=== PATIENT | female | born 1935 ===

== ENCOUNTER 2017-06-15 17:51 | Inpatient (IN) | payer MEDICARE, OTHER ==
[~2017-06-15] VITALS: Ht 152.4 cm; Wt 43.1 kg
[2017-06-15] MEDS ORDERED: IV NORMAL SALINE 1000 ML BAG IV ONE ×2 (18:15→19:15)
[2017-06-15] MEDS ORDERED: ABILIFY (18:18)
[2017-06-15 18:56] LABS: BASOPHILS % (AUTO) 0.3 % (0.0-2.0); HEMATOCRIT 34.9 % (31.2-41.9); HEMOGLOBIN 11.3 g/dL (10.9-14.3); LYMPHOCYTES # (AUTO) 2.2 K/uL (20.0-40.0); LYMPHOCYTES % (AUTO) 37.2 % (20.5-51.5); MEAN CORPUSCULAR HEMOGLOBIN 29.5 uug (24.7-32.8); MEAN CORPUSCULAR HGB CONC 32 g/dL (32.3-35.6); MEAN CORPUSCULAR VOLUME 91.3 fL (75.5-95.3); MONOCYTES % (AUTO) 17.5 % (0.0-11.0); NEUTROPHILS # (AUTO) 2.7 K/uL (1.8-8.9); PLATELET COUNT (AUTO) 153 K/uL (179-408); RED BLOOD CELL COUNT(AUTO) 3.82 MIL/uL (3.63-4.92)
[2017-06-15 18:59] LABS: CARBON DIOXIDE 31 mmol/L (21-32); CHLORIDE 110 mmol/L (98-107); CREATININE 1.2 mg/dL (0.6-1.3); GLUCOSE 139 mg/dL (74-106); UREA NITROGEN, BLOOD 49 mg/dL (7-18)
[2017-06-15 19:05] LABS: ALANINE AMINOTRANSFERASE 104 U/L (14-59); ALKALINE PHOSPHATASE 58 U/L (50-136); ASPARTATE AMINOTRANSFERASE 140 U/L (15-37); BILIRUBIN,DIRECT 0.1 mg/dL (0.0-0.2); BILIRUBIN,TOTAL 0.3 mg/dL (0.2-1.0); TOTAL PROTEIN, SERUM 10.5 g/dL (6.4-8.2)
[2017-06-15] MEDS ORDERED: LEVOFLOXACIN 500 MG/D5W 100ML PIGGYBACK IV ONE (19:15)
[2017-06-15] MEDS ORDERED: METRONIDAZOLE 500 MG/NS 100ML 100 ML IV ONE (19:15)
[2017-06-15] MEDS ORDERED: VANCOMYCIN IV 1,000 MG in IV DEXTROSE 5% 250 ML IV ONE (19:15)
[2017-06-15 19:32] LABS: BAND % (MANUAL) 16 % (0-10); LYMPHOCYTES % (MANUAL) 35 % (20-40); MONOCYTES % (MANUAL) 15 % (2-10); NEUTROPHILS % (MANUAL) 34 % (42-75)
--- NOTE | 2017-06-15 19:45 | NUR ---
Received report from IAN Giron. Assumed care of pt at this time. ABT infusing, no problems noted to site. Pt resting in position of comfort for self. No obviou signs of distress at this time. Family remains at bedside.
[2017-06-15 19:59] LABS: *BILIRUBIN,URIN NEGATIVE (NEGATIVE); *BLOOD, URINE 2+ (NEGATIVE); *CLARITY,URINE CLOUDY (CLEAR); *COLOR,URINE YELLOW (YELLOW); *KETONES,URINE NEGATIVE (NEGATIVE); *UROBILINOGEN,URINE 0.2 E.U./dl (NORMAL); LEUKOCYTE ESTERASE ,URINE 3+ (NEGATIVE); NITRITE, URINE NEGATIVE (NEGATIVE); PH,URINE 7.5 (5.0-8.0); UGLUCOSE NEGATIVE (NEGATIVE)
[2017-06-15 20:13] LABS: *PROTEIN,URINE 3+ (NEGATIVE)
[2017-06-15 20:16] LABS: BACTERIA,URINE MODERATE /HPF (NONE SEEN); CALCIUM OXALATE CRYSTALS,UR FEW /HPF (NONE SEEN); SQUAMOUS EPITHELIAL CELL,UR FEW /HPF (NONE SEEN); WBC,URINE 80-100 /HPF (0-3); YEAST,URINE MANY /HPF (NONE SEEN)
--- NOTE | 2017-06-15 20:41 | NUR ---
ABT infusion completed. IV infiltrated, dc'd catheter intact. Pt resting in position of comfort for self, family remains at bedside. No obvious signs of distress at this time.
--- NOTE | 2017-06-15 22:51 | NUR ---
Report given to IAN Petit. Preparing to transfer pt to the floor.
[2017-06-15] MEDS ORDERED: HYDR2TAB7 PO (23:11)
[2017-06-15] MEDS ORDERED: AMLO5TAB2 PO (23:11)
[2017-06-15] MEDS ORDERED: MAGN500C16 PO (23:11)
[2017-06-15] MEDS ORDERED: LORA-258 PO (23:11)
[2017-06-15] MEDS ORDERED: DULO30CA2 PO (23:11)
[2017-06-15] MEDS ORDERED: CYAN50004 PO (23:11)
[2017-06-15] MEDS ORDERED: ESOM40CA PO (23:11)
[2017-06-15] MEDS ORDERED: QUET25TA PO (23:11)
[2017-06-15] MEDS ORDERED: ASPI81TA31 PO (23:11)
[2017-06-15] MEDS ORDERED: SENN-167 PO (23:11)
[2017-06-15] MEDS ORDERED: DEXT1CAP3 PO (23:11)
[2017-06-15] MEDS ORDERED: ROPI0.5T PO (23:11)
[2017-06-15] MEDS ORDERED: HYDR2TAB4 PO (23:11)
[2017-06-15] MEDS ORDERED: HYDROMORPHONE 1 MG/1 ML DISP.SYRIN IV ONE (23:15)
[2017-06-15] MEDS ORDERED: ONDANSETRON 4 MG/2 ML VIAL IV ONE (23:15)
[2017-06-15] MEDS ORDERED: HYDROMORPHONE 2 MG/1 ML DISP.SYRIN ONE (23:37)
[2017-06-15] MEDS ORDERED: ONDANSETRON 4 MG/2 ML VIAL ONE (23:38)
--- NOTE | 2017-06-16 00:15 | NUR ---
RECEIVED PATIENT FROM ER VIA GURNEY. PATIENT STABLE WITH NO SIGNS OF PAIN, SOB, OR ACUTE DISTRESS. PATIENT CONFUSED/FARSI SPEAKER. FAMILY WITH PATIENT AT BEDSIDE. ADMIT DX OF SEPSIS, UNDER THE CARE OF DR. NOVOA. VITAL SIGNS STABLE AT START OF SHIFT. TELE MONITOR LEADS IN PLACE. PERTINENT ASSESSMENT COMPLETED. MD AWARE OF PATIENT ADMISSION. BED IN LOW POSITION X2 SIDE RAILS UP. CALL LIGHT WITHIN REACH OF PATIENT. WILL CONTINUE TO MONITOR PATIENT THROUGH SHIFT.
[2017-06-16 01:26] VITALS: BP 122/65
[2017-06-16] MEDS ORDERED: MAGNESIUM HYDROXIDE 30 ML LIQUID UDC PO PRN (02:00)
[2017-06-16] MEDS ORDERED: Z GUARD REMEDY PASTE 57 GM TUBE TOP PRN ×2 (02:00→09:15)
[2017-06-16] MEDS ORDERED: ZOLPIDEM 5 MG TABLET PO PRN (02:00)
[2017-06-16] MEDS ORDERED: HYDROMORPHONE HCL 2 MG TABLET PO PRN (02:00)
[2017-06-16] MEDS ORDERED: SENNOSIDES 1 TABLET PO PRN (02:00)
[2017-06-16] MEDS ORDERED: ONDANSETRON 4 MG/2 ML VIAL IV PRN (02:00)
[2017-06-16 04:00] VITALS: BP 133/73
--- NOTE | 2017-06-16 05:41 | NUR ---
PATIENT SLEPT WELL SINCE ADMISSION WITH NO SIGNS OF PAIN, SOB, OR ACUTE DISTRESS. VITAL SIGNS STABLE THROUGH SHIFT. PT ON 2L O2 VIA NC. ALL NEEDS ATTENDED TO. NUNN CATH BAG LOW AT BEDSIDE AND OFF THE FLOOR. APPLIED MEPILEX TO PRESSURE ULCERS. SAFETY MEASURES IMPLEMENTED.BED IN LOW POSITION X2 SIDE RAILS UP. CALL LIGHT WITHIN REACH OF PT. WILL ENDORSE TO DAY SHIFT NURSE.
[2017-06-16] MEDS: HYDROCODONE/APAP 5-325MG TABLET PO PRN (08:04)
[2017-06-16] MEDS: ropiniROLE 0.5 MG TABLET PO SCH ×2 (08:15→17:56)
[2017-06-16] MEDS: ACETAMINOPHEN 325 MG TABLET PO PRN ×2 (08:15→15:00)
[2017-06-16] MEDS: AMLODIPINE 5 MG TABLET PO SCH (08:15)
[2017-06-16] MEDS: DULOXETINE 30 MG CAPSULE.DR PO SCH (08:15)
[2017-06-16 08:34] LABS: BASOPHILS % (AUTO) 0.4 % (0.0-2.0); HEMATOCRIT 34.3 % (31.2-41.9); HEMOGLOBIN 11.1 g/dL (10.9-14.3); LYMPHOCYTES # (AUTO) 2.6 K/uL (20.0-40.0); LYMPHOCYTES % (AUTO) 47.6 % (20.5-51.5); MEAN CORPUSCULAR HEMOGLOBIN 29.3 uug (24.7-32.8); MEAN CORPUSCULAR HGB CONC 32 g/dL (32.3-35.6); MEAN CORPUSCULAR VOLUME 90.8 fL (75.5-95.3); MONOCYTES # (AUTO) 0.8 K/uL (2.0-10.0); MONOCYTES % (AUTO) 14.1 % (0.0-11.0); NEUTROPHILS % (AUTO) 37.9 % (38.5-71.5); PLATELET COUNT (AUTO) 140 K/uL (179-408); RED BLOOD CELL COUNT(AUTO) 3.78 MIL/uL (3.63-4.92); WHITE BLOOD COUNT (AUTO) 5.4 K/uL (3.8-11.8)
[2017-06-16 08:41] LABS: CARBON DIOXIDE 29 mmol/L (21-32); CHLORIDE 112 mmol/L (98-107); CREATININE 0.9 mg/dL (0.6-1.3); GLUCOSE 118 mg/dL (74-106); MAGNESIUM 2.3 mg/dL (1.8-2.4); PHOSPHOROUS 2.8 mg/dL (2.5-4.9); POTASSIUM 3.9 mmol/L (3.5-5.1); UREA NITROGEN, BLOOD 46 mg/dL (7-18)
[2017-06-16] MEDS: ASPIRIN 81 MG TAB.CHEW PO SCH (09:12)
[2017-06-16] MEDS: IV NS 1000 ML 1,000 ML IV PRN ×2 (09:19→20:24)
[2017-06-16] MEDS: HYDROMORPHONE HCL 2 MG TABLET PO PRN ×3 (10:56→20:38)
[2017-06-16 11:15] VITALS: BP 137/75
--- NOTE | 2017-06-16 13:08 | NUR ---
Clinical pharmacy note-Vancomycin dosing per pharmacy S: To start Vancomycin dosing on this patient for suspected infection. O: BUN 46 Scr 0.9 WBC 5.4 Temp 101.6 A/P: Patient had Vancomycin 1gram in ER last night at 2216. Since renal function is improved (0.9 vs 1.2), will check random tonight at 1800 for further dosing. Will follow daily. Addendum: 06/16/17 at 1839 by IVONNE DURANT RANDOM LEVEL 6.8 GIVE VANCOMYCIN 1GM IVPB X 1 REPEAT RANDOM LEVEL TOMORROW EVENING
--- NOTE | 2017-06-16 14:29 | NUR ---
WOUND CARE CONSULT: PT NOT SEEN FOR SKIN ASSESSMENT YET DUE TO PATIENT HAVING PROCEDURE AT THIS TIME. PT ON FIRST STEP MATTRESS. ALL SKIN PROTECTION MEASURES IN PLACE AND DISCUSSED WITH NURSING STAFF. WILL SEE PT PT CONDITION PERMITS. MD IN AGREEMENT WITH PLAN OF CARE.
[2017-06-16] MEDS: QUETIAPINE FUMARATE 25 MG TABLET PO SCH ×4 (15:00→20:39)
[2017-06-16] MEDS: PIPERACILLIN/TAZOBACTAM/D5W 3.375 G in PREMIXED 1 EACH IV SCH ×2 (15:09→23:05)
[2017-06-16] MEDS ORDERED: LEVOFLOXACIN 500 MG/D5W 500 MG in PREMIXED 1 EACH IV SCH (16:00)
--- NOTE | 2017-06-16 17:14 | NUR ---
PATIENT BEEN DISCHARGE HOME IN SAFE AND STABLE CONDITION TO [facility]. NO S/S OF DISTRESS DURING MY SHIFT. COOPERATIVE WITH ALL INTERVENTIONS AND MEDICATIONS. DISCHARGE INSTRUCTIONS WERE EXPLAINED TO THE PATIENT AND FAMILY. A COPY WAS PROVIDED TO THE FAMILY. REPORT WAS GIVEN TO IAN LIRIANO AT THE FACILITY. IV WAS REMOVED AND DRESSING WAS APPLIED. ALL DC PHOTOS WERE TAKEN AND PLACED ON THE CHART. SAFETY AND COMFORT WAS PROVIDED BY STAFF. PATIENT WAS TAKEN BY AMBULANCE IN STABLE CONDITION ACCOMPANIED BY FAMILY. Addendum: 06/16/17 at 1751 by SB GUAMAN RN Wrong patient
--- NOTE | 2017-06-16 17:51 | NUR ---
PATIENT BEEN RUNNING A FEVER DURING THE DAY. AND MOANING AND CRYING FOR PAIN. MEDICATION WAS GIVEN FOR TEMPERATURE AND PAIN. COOLING MEASUREMENT WAS APPLIED. DR. NOVOA NOTIFIED ABOUT THE INCREASE FEVER. ANTIBIOTICS WERE ADMINISTERED ORDERED. FAMILY MEMBER VISITED AND HELPED PATIENT FEED THE PATIENT. WOUND CONSULT WAS ORDERED, HYDROGEL AND MEPILEX WERE APPLIED ON THE PRESSURE ULCERS. REPOSITION Q2HRS. IV STILL INTACT, FLUIDS ARE RUNNING AT THE MOMENT. SAFETY AND COMFORT PROVIDED DURING THE DAY BY THE STAFF. WILL CONTINUE MONITORING.
[2017-06-16 19:00] VITALS: BP 111/61
--- NOTE | 2017-06-16 19:28 | NUR ---
PATIENT IS IN BED RESTING. FAMILY AT THE BEDSIDE. REPORT GIVEN IAN SCHWARZ
--- NOTE | 2017-06-16 19:30 | NUR ---
PT SLEEPING IN BEDSIDE. FAMILY MEMBER ON BEDSIDE. PT IV SITE INTACT. CALL LIGHT WITHIN REACH. BED ALARM ON. PROVIDE COMFORT AND SAFTEY. WILL CONTINUE TO MONITOR.
[2017-06-16] MEDS ORDERED: VANCOMYCIN IV 1 G in PREMIXED 0 EACH IV ONE (20:00)
[2017-06-16 21:00] VITALS: BP 111/61
[2017-06-16] MEDS ORDERED: FLUCONAZOLE 200 MG/NS 100ML IV 100 MG in PREMIXED 1 EACH IV SCH (21:15)
[2017-06-17] MEDS ORDERED: FLUCONAZOLE 200 MG/100 ML PIGGYBACK ONE (00:36)
[2017-06-17] MEDS: HYDROMORPHONE HCL 2 MG TABLET PO PRN ×4 (01:35→20:11)
[2017-06-17 04:00] VITALS: BP 161/87
[2017-06-17] MEDS: HYDROCODONE/APAP 5-325MG TABLET PO PRN (05:13)
[2017-06-17] MEDS: PIPERACILLIN/TAZOBACTAM/D5W 3.375 G in PREMIXED 1 EACH IV SCH ×3 (06:08→23:50)
--- NOTE | 2017-06-17 06:45 | NUR ---
PT SLEEPING IN BED. GAVE PAIN MEDICATION THROUGHOUT THE SHIFT. PT IS MOANING AND CRYING BUT WHENEVER I GAVE THE PAIN MEDS SHE SLEPT AFTERWARDS. REPOSITON THE PT Q 2 H . SAFETY AND COMFORT PROVIDED.
[2017-06-17 08:04] LABS: BASOPHILS % (AUTO) 0.2 % (0.0-2.0); EOSINOPHILS % (AUTO) 0.1 % (0.0-7.0); HEMATOCRIT 34.4 % (31.2-41.9); HEMOGLOBIN 10.8 g/dL (10.9-14.3); LYMPHOCYTES # (AUTO) 2.2 K/uL (20.0-40.0); LYMPHOCYTES % (AUTO) 38.8 % (20.5-51.5); MEAN CORPUSCULAR HEMOGLOBIN 28.7 uug (24.7-32.8); MEAN CORPUSCULAR HGB CONC 31 g/dL (32.3-35.6); MEAN CORPUSCULAR VOLUME 91.5 fL (75.5-95.3); MONOCYTES # (AUTO) 0.4 K/uL (2.0-10.0); MONOCYTES % (AUTO) 6.5 % (0.0-11.0); NEUTROPHILS # (AUTO) 3.1 K/uL (1.8-8.9); NEUTROPHILS % (AUTO) 54.4 % (38.5-71.5); PLATELET COUNT (AUTO) 127 K/uL (179-408); RED BLOOD CELL COUNT(AUTO) 3.76 MIL/uL (3.63-4.92); WHITE BLOOD COUNT (AUTO) 5.7 K/uL (3.8-11.8)
[2017-06-17 08:32] LABS: CARBON DIOXIDE 27 mmol/L (21-32); CHLORIDE 112 mmol/L (98-107); CHOLESTEROL 142 mg/dL (<200); CREATININE 0.7 mg/dL (0.6-1.3); GLUCOSE 111 mg/dL (74-106); HDL CHOLESTEROL 39 mg/dL (40-60); MAGNESIUM 2.1 mg/dL (1.8-2.4); PHOSPHOROUS 2.1 mg/dL (2.5-4.9); POTASSIUM 3.7 mmol/L (3.5-5.1); TRIGLYCERIDES 133 MG/DL (30-150); UREA NITROGEN, BLOOD 28 mg/dL (7-18)
[2017-06-17 08:36] VITALS: BP 146/95
[2017-06-17] MEDS: AMLODIPINE 5 MG TABLET PO SCH (08:46)
[2017-06-17] MEDS: ASPIRIN 81 MG TAB.CHEW PO SCH (08:46)
[2017-06-17] MEDS: ropiniROLE 0.5 MG TABLET PO SCH ×2 (08:47→18:07)
[2017-06-17] MEDS: DULOXETINE 30 MG CAPSULE.DR PO SCH (08:47)
[2017-06-17] MEDS: QUETIAPINE FUMARATE 25 MG TABLET PO SCH ×4 (08:47→20:55)
--- NOTE | 2017-06-17 09:29 | NUR ---
Nurse's Note: Patient is moaning, patient moans when having pain, medicated with Dilaudid 2 mg tablet crushed and given with juice. daughter at bedside. patient will not open mouth. liquids and medication given with syringe. Patient is able to swallow.
--- NOTE | 2017-06-17 11:22 | NUR ---
Clinical pharmacy note-Vancomycin dosing per pharmacy S: Will continue Vancomycin dosing on this patient for suspected infection. O: BUN 28 Scr 0.7 WBC 5.7 Temp 99.8 pending: tonight 1750 A/P: Pt's renal function continues to improve. one gram was given last night, random ordered for this evening at 1730. Will check level and dose as needed. Addendum: 06/17/17 at 1911 by USHA FERNANDES ADM VANCOMYCIN LEVEL IS 7.9 WILL ADMINISTER ANOTHER DOSE OF VANCOMYCIN 1 GM
[2017-06-17 11:43] VITALS: BP 145/93
[2017-06-17] MEDS: IV NS 1000 ML 1,000 ML IV PRN (13:52)
[2017-06-17] MEDS ORDERED: POTASSIUM PHOSPHATE MM 7.5 MMOL in IV DEXTROSE 5% 100 ML IV ONE (15:00)
--- NOTE | 2017-06-17 15:25 | NUR ---
Nurse Notes: Medicated for pain with dilaudid 2 mg given crushed and given in apple juice, able to swallow with use of syringe, given slowly allowing patient to swallow.
[2017-06-17 15:57] VITALS: BP 122/71
[2017-06-17] MEDS ORDERED: VANCOMYCIN IV 1 G in PREMIXED 0 EACH IV ONE (19:15)
--- NOTE | 2017-06-17 20:30 | NUR ---
Received pt from Med Surg hair preparer RN. AAO x1. On 2L O2 via NC, tolerating well. Russell catheter draining well with yellow colored urine. IV site intact. No acute distress noted. No signs of pain or discomfort. Oriented to unit and equipment. Safety measures maintained. Call light and personal belongings within reach. Will continue to monitor.
--- NOTE | 2017-06-17 20:56 | NUR ---
dilaudid 2 mg po medicated for pain,given slowly via syringe, hob elevated, aspiration precautions.transfer patient to room 122A, via bed, accompany by daughter ,took all belongings, report given to RN.
[2017-06-17] MEDS: FLUCONAZOLE 200 MG/NS 100ML IV 100 MG in PREMIXED 1 EACH IV SCH (22:26)
--- NOTE | 2017-06-17 22:35 | NUR ---
Change of assignment. Pt stable. Shift report given to incoming nurse.
[2017-06-17 22:39] VITALS: BP 106/55
[2017-06-18 04:30] VITALS: BP 147/71
[2017-06-18] MEDS: HYDROMORPHONE HCL 2 MG TABLET PO PRN ×4 (06:27→23:36)
[2017-06-18] MEDS: IV NS 1000 ML 1,000 ML IV PRN ×2 (06:31→21:43)
[2017-06-18] MEDS: PIPERACILLIN/TAZOBACTAM/D5W 3.375 G in PREMIXED 1 EACH IV SCH ×3 (06:32→21:37)
--- NOTE | 2017-06-18 07:30 | NUR ---
Received patient, asleep but arousable. No noted signs of pain or discomfort. Not in any form of acute distress.
[2017-06-18 08:00] VITALS: BP 136/83
[2017-06-18] MEDS: ASPIRIN 81 MG TAB.CHEW PO SCH (09:00)
[2017-06-18] MEDS: DULOXETINE 30 MG CAPSULE.DR PO SCH (09:00)
[2017-06-18] MEDS: ropiniROLE 0.5 MG TABLET PO SCH ×2 (09:00→17:36)
[2017-06-18] MEDS: QUETIAPINE FUMARATE 25 MG TABLET PO SCH ×4 (09:00→20:18)
[2017-06-18] MEDS: AMLODIPINE 5 MG TABLET PO SCH (09:00)
[2017-06-18] MEDS: HYDROCODONE/APAP 5-325MG TABLET PO PRN (10:42)
--- NOTE | 2017-06-18 10:42 | NUR ---
Patient in pain, Muir sanchez scale used. Facial grimacing upon movement. PRN [place] given.
--- NOTE | 2017-06-18 19:34 | NUR ---
Received pt lying on bed comfortably. Daughter at bedside during this time. No acute distress noted. No facial grimacing or non verbal signs of pain was noted. No SOB noted. Russell catheter intact and patent, no signs of infection noted. Turned and repositioned pt. Kept clean, dry and comfortable. Call light within reach. Bed locked and in lowest position. Side rails up. All needs attended.
[2017-06-18] MEDS: FLUCONAZOLE 200 MG/NS 100ML IV 100 MG in PREMIXED 1 EACH IV SCH (20:20)
[2017-06-18 21:57] VITALS: BP 129/60
[2017-06-19] MEDS: PIPERACILLIN/TAZOBACTAM/D5W 3.375 G in PREMIXED 1 EACH IV SCH (05:49)
--- NOTE | 2017-06-19 05:54 | NUR ---
Pt slept well throughout the shift. No acute distress noted. Facial grimacing and moaning noted, dilaudid PRN was given. Relief noted. Turned and repositioned every 2hrs. IV line on LFA intact and patent. Kept clean, dry and comfortable. Call light within reach. All needs met
--- NOTE | 2017-06-19 07:30 | NUR ---
Received patient report from night nurse, patient is awake and alert, verbally responsive to touch and tactile stimuli, speaks farsi, not in acute distress, denies pain and no discomfort, no facial grimacing noted, turned and repositioned for comfort and pressure relief, need attended, kept clean and dry. Safety measures implemented, bed is locked and on a low position.
[2017-06-19 08:07] VITALS: BP 120/76
[2017-06-19] MEDS: HYDROMORPHONE HCL 2 MG TABLET PO PRN ×3 (09:08→17:13)
[2017-06-19] MEDS: ASPIRIN 81 MG TAB.CHEW PO SCH (09:09)
[2017-06-19] MEDS: ropiniROLE 0.5 MG TABLET PO SCH ×2 (09:09→17:13)
[2017-06-19] MEDS: QUETIAPINE FUMARATE 25 MG TABLET PO SCH ×4 (09:10→21:55)
[2017-06-19] MEDS: DULOXETINE 30 MG CAPSULE.DR PO SCH (09:11)
[2017-06-19] MEDS: AMLODIPINE 5 MG TABLET PO SCH (09:11)
[2017-06-19] MEDS: HYDROCODONE/APAP 5-325MG TABLET PO PRN (12:39)
--- NOTE | 2017-06-19 14:50 | NUR ---
1345 heat pack placed on left arm for iv establishment. IV establishment attempted x2 with no success. daughter present in room. Daughter requested to attempt establishing IV for her mother since she is a land leases and rentals manager. I explained to daughter that per hospital rules the patient is to receive procedures by licensed and assigned nurse.
[2017-06-19 15:54] LABS: BASOPHILS % (AUTO) 0.3 % (0.0-2.0); EOSINOPHILS # (AUTO) 0.1 K/uL (0.0-0.7); EOSINOPHILS % (AUTO) 2.5 % (0.0-7.0); HEMATOCRIT 35.3 % (31.2-41.9); HEMOGLOBIN 11.2 g/dL (10.9-14.3); LYMPHOCYTES # (AUTO) 1.4 K/uL (20.0-40.0); LYMPHOCYTES % (AUTO) 30.2 % (20.5-51.5); MEAN CORPUSCULAR HEMOGLOBIN 28.7 uug (24.7-32.8); MEAN CORPUSCULAR HGB CONC 32 g/dL (32.3-35.6); MEAN CORPUSCULAR VOLUME 90.5 fL (75.5-95.3); MONOCYTES # (AUTO) 0.3 K/uL (2.0-10.0); MONOCYTES % (AUTO) 6.7 % (0.0-11.0); NEUTROPHILS # (AUTO) 2.8 K/uL (1.8-8.9); NEUTROPHILS % (AUTO) 60.3 % (38.5-71.5); PLATELET COUNT (AUTO) 123 K/uL (179-408); WHITE BLOOD COUNT (AUTO) 4.6 K/uL (3.8-11.8)
[2017-06-19 16:00] LABS: CARBON DIOXIDE 30 mmol/L (21-32); CHLORIDE 104 mmol/L (98-107); CREATININE 0.7 mg/dL (0.6-1.3); GLUCOSE 125 mg/dL (74-106); POTASSIUM 3.6 mmol/L (3.5-5.1); UREA NITROGEN, BLOOD 22 mg/dL (7-18)
[2017-06-19 16:06] LABS: ALANINE AMINOTRANSFERASE 90 U/L (14-59); ALKALINE PHOSPHATASE 64 U/L (50-136); ASPARTATE AMINOTRANSFERASE 76 U/L (15-37); BILIRUBIN,TOTAL 0.3 mg/dL (0.2-1.0); MAGNESIUM 1.9 mg/dL (1.8-2.4); PHOSPHOROUS 3.5 mg/dL (2.5-4.9); TOTAL PROTEIN, SERUM 9.1 g/dL (6.4-8.2)
--- NOTE | 2017-06-19 19:30 | NUR ---
Received patient laying comfortably in bed. No acute distress noted. A&O x 1. Farsi speaking only. Noted multiple redness in the back and sacral area. Mepilex applied. Russell is patent and draining. KCI mattress in place. Safety initiated. Call light within reach. Will continue to monitor.
[2017-06-19] MEDS: ACETAMINOPHEN 325 MG TABLET PO PRN (21:55)
[2017-06-19] MEDS: FLUCONAZOLE 200 MG/NS 100ML IV 100 MG in PREMIXED 1 EACH IV SCH (22:26)
[2017-06-20] MEDS: HYDROMORPHONE HCL 2 MG TABLET PO PRN ×4 (02:09→23:22)
[2017-06-20] MEDS: IV NS 1000 ML 1,000 ML IV PRN ×2 (02:15→21:01)
[2017-06-20] MEDS: LORAZEPAM 0.5 MG TABLET PO PRN ×2 (05:00→13:57)
--- NOTE | 2017-06-20 05:00 | NUR ---
Patient screaming, seems to be in pain. When I checked to see if she made a BM, noticed that the abdomen is distended, rigid, and firm. Patient also screamed more when touching her abdomen. Notified the other RN and house sup. Instructed to call and notified . Paged on-call provider Shyla Irwin, waiting for a call back. Addendum: 06/20/17 at 0659 by LEYLA SHAH RN Time of page was at 0620
--- NOTE | 2017-06-20 07:37 | NUR ---
Patient slept intermittently t/o shift. IVF infusing. Patient was crying and moaning t/o shift. Guarding observed as well. Patient appeared in pain. Pain meds given, but no signs of relief. Patient is on O2 2L NC. Vital signs stable. Turn and repositioned Q2H. BM x 1. Russell care provided. Draining well. Observed abdomen= rigged, tender, distended and painful to touch. paged to make aware. Pending new orders.Safety and comfort measures maintained t/o shift. All meds given as ordered. All needs met.
[2017-06-20 08:14] LABS: BASOPHILS % (AUTO) 0.5 % (0.0-2.0); EOSINOPHILS # (AUTO) 0.1 K/uL (0.0-0.7); EOSINOPHILS % (AUTO) 2.2 % (0.0-7.0); HEMATOCRIT 30.7 % (31.2-41.9); LYMPHOCYTES # (AUTO) 1.3 K/uL (20.0-40.0); LYMPHOCYTES % (AUTO) 29.4 % (20.5-51.5); MEAN CORPUSCULAR HEMOGLOBIN 28.8 uug (24.7-32.8); MEAN CORPUSCULAR HGB CONC 32 g/dL (32.3-35.6); MEAN CORPUSCULAR VOLUME 88.8 fL (75.5-95.3); MONOCYTES # (AUTO) 0.3 K/uL (2.0-10.0); MONOCYTES % (AUTO) 6.7 % (0.0-11.0); NEUTROPHILS # (AUTO) 2.7 K/uL (1.8-8.9); NEUTROPHILS % (AUTO) 61.2 % (38.5-71.5); PLATELET COUNT (AUTO) 122 K/uL (179-408); RED BLOOD CELL COUNT(AUTO) 3.46 MIL/uL (3.63-4.92); WHITE BLOOD COUNT (AUTO) 4.4 K/uL (3.8-11.8)
[2017-06-20 08:32] LABS: ALANINE AMINOTRANSFERASE 74 U/L (14-59); ALKALINE PHOSPHATASE 53 U/L (50-136); ASPARTATE AMINOTRANSFERASE 66 U/L (15-37); BILIRUBIN,TOTAL 0.4 mg/dL (0.2-1.0); CARBON DIOXIDE 28 mmol/L (21-32); CHLORIDE 106 mmol/L (98-107); CREATININE 0.5 mg/dL (0.6-1.3); GLUCOSE 92 mg/dL (74-106); MAGNESIUM 1.8 mg/dL (1.8-2.4); PHOSPHOROUS 3.3 mg/dL (2.5-4.9); POTASSIUM 3.3 mmol/L (3.5-5.1); TOTAL PROTEIN, SERUM 8.3 g/dL (6.4-8.2); UREA NITROGEN, BLOOD 21 mg/dL (7-18)
[2017-06-20 08:58] LABS: THYROID STIMULATING HORMONE 1.851 mIU/mL (0.358-3.740)
[2017-06-20 08:59] VITALS: BP 163/75
[2017-06-20] MEDS: DULOXETINE 30 MG CAPSULE.DR PO SCH (09:07)
[2017-06-20] MEDS: QUETIAPINE FUMARATE 25 MG TABLET PO SCH ×4 (09:07→21:01)
[2017-06-20] MEDS: ropiniROLE 0.5 MG TABLET PO SCH ×2 (09:07→16:29)
[2017-06-20] MEDS: ASPIRIN 81 MG TAB.CHEW PO SCH (09:07)
[2017-06-20] MEDS: AMLODIPINE 5 MG TABLET PO SCH (09:08)
[2017-06-20] MEDS ORDERED: POTASSIUM CHLORIDE 20 MEQ TAB.PRT.SR PO ONE (15:00)
--- NOTE | 2017-06-20 18:30 | NUR ---
Received patient report from night nurse, patient is awake and alert, verbally responsive to touch and tactile stimuli, speaks farsi, not in acute distress, denies pain and no discomfort, no facial grimacing noted, turned and repositioned for comfort and pressure relief, need attended, kept clean and dry. Safety measures implemented, bed is locked and on a low position. Addendum: 06/20/17 at 1999 by NIKUNJ ODELL JR., RN Patient in bed, asleep, comfortable and not in any form of discomfort, on O2 at 2LPM via NC with no signs and symptoms of acute distress. On IV antibiotic for yeast infection, no adverse reactions at this time. Patient was provided with laxatives as ordered for constipation, patient had 2 episodes of bowel movements, one of which was loose. Patient has no signs and symptoms of dehydration, currently on IVF for continuos hydration as ordered, kept comfortable clean and dry, wound care done on left upper back and sacral area as ordered, turned and repositioned for pressure relief. Needs attended promptly, due medications given. Call light is in easy reach
[2017-06-20 19:30] VITALS: BP 129/72
--- NOTE | 2017-06-20 19:45 | NUR ---
Received pt in bed, appearing to be asleep but arousable to verbal stimuli and touch. AAO x 1, Farsi speaking only. Daughter at bedside. No facial indications of pain noted. Daughter at bedside, expressing concern regarding mother's diarrhea. All needs anticipated and met accordingly. No acute distress noted. Call light and personal belongings within reach. All safety measures and fall precautions maintained. Will continue to monitor.
[2017-06-20] MEDS: FLUCONAZOLE 200 MG/NS 100ML IV 100 MG in PREMIXED 1 EACH IV SCH (21:05)
[2017-06-21] MEDS: HYDROMORPHONE HCL 2 MG TABLET PO PRN ×4 (03:24→21:15)
--- NOTE | 2017-06-21 06:04 | NUR ---
Pt slept comfortably throughout the shift. All needs anticipated and met accordingly. All due medications given as ordered by MD, well tolerated. Medicated for pain PRN as ordered by MD. Kept clean, dry and comfortable. Vitals WNL. No acute distress noted. No facial indication of pain noted. All safety measures and fall precautions maintained. Call light and all personal belongings within reach. Will continue to monitor. Will endorse to AM shift.
[2017-06-21 07:15] VITALS: BP 145/76
[2017-06-21] MEDS: QUETIAPINE FUMARATE 25 MG TABLET PO SCH ×4 (08:31→21:15)
[2017-06-21] MEDS: ropiniROLE 0.5 MG TABLET PO SCH ×2 (08:32→17:38)
[2017-06-21] MEDS: DULOXETINE 30 MG CAPSULE.DR PO SCH (08:33)
[2017-06-21] MEDS: AMLODIPINE 5 MG TABLET PO SCH (08:34)
[2017-06-21] MEDS: ASPIRIN 81 MG TAB.CHEW PO SCH (08:34)
[2017-06-21 09:06] LABS: CARBON DIOXIDE 30 mmol/L (21-32); CHLORIDE 109 mmol/L (98-107); CREATININE 0.6 mg/dL (0.6-1.3); GLUCOSE 85 mg/dL (74-106); POTASSIUM 3.2 mmol/L (3.5-5.1); UREA NITROGEN, BLOOD 15 mg/dL (7-18)
[2017-06-21] MEDS: LORAZEPAM 0.5 MG TABLET PO PRN ×2 (10:01→22:37)
[2017-06-21] MEDS ORDERED: FLUC200T PO (13:50)
[2017-06-21] MEDS ORDERED: POTASSIUM CHLORIDE 20 MEQ TAB.PRT.SR PO ONE (14:00)
--- NOTE | 2017-06-21 19:16 | NUR ---
D/C PICS PICS TAKEN AND PLACED IN CHART WITH MEASUREMENTS. RIGHT BACK DTI [id number]. RIGHT HIP BONY [id number] CLOSED. SACRAL SKIN REDNESS [id number]. ALL AREAS COVERED WITH MEPILEX.
[2017-06-21 19:30] VITALS: BP 116/61
--- NOTE | 2017-06-21 19:30 | NUR ---
Received pt in bed, appearing to be asleep. No facial indications of pain noted. Was endorsed by AM shift that peripheral IV was pulled out during attempt to change patient and take pictures. Multiple attempts to re-insert IV unsuccessful. School Bus Driver/Mechanic made aware. Will continue to monitor. No acute distress noted. All safety measures and fall precautions maintained.
[2017-06-21] MEDS: FLUCONAZOLE 200 MG/NS 100ML IV 100 MG in PREMIXED 1 EACH IV SCH ×2 (21:00→21:16)
[2017-06-21] MEDS: ACETAMINOPHEN 325 MG TABLET PO PRN (22:38)
--- NOTE | 2017-06-21 22:56 | NUR ---
Patient noted to be screaming loudly. Encouraged relaxation techniques, deep breathing techniques to decrease agitation. Attempted to give PRN ativan 0.5 mg crushed med due to puree diet and aspiration precaution, but patient spit it out. Will continue to monitor. All safety measures and fall precautions maintained.
--- NOTE | 2017-06-21 23:42 | NUR ---
Pt IV medication gave late due to unsuccessful IV insertion attempts. Human Resources Receptionist re-inserted IV 22g on left hand. Good blood return. Patent and intact. Continue IV fluids and IVPB hung. No acute distress noted. Pt is no longer screaming. Appearing to be asleep. Will continue to monitor. Safety maintained. Will continue to monitor.
[2017-06-22] MEDS: HYDROMORPHONE HCL 2 MG TABLET PO PRN ×4 (01:14→18:48)
--- NOTE | 2017-06-22 06:06 | NUR ---
Patient continuing to yell throughout shift. Multiple attempts made to calm patient down and reduce yelling, unsuccessful. Medicated with PRN pain medication as ordered and well tolerated. Unable to verbalize needs due to language barrier. No acute distress noted. Safety maintained. Kept clean, dry and comfortable. Call light within reach. Will endorse to AM shift. Will continue to monitor.
[2017-06-22] MEDS: IV NS 1000 ML 1,000 ML IV PRN (07:28)
[2017-06-22 07:59] VITALS: BP 157/81
[2017-06-22 08:01] VITALS: BP 157/81
--- NOTE | 2017-06-22 08:09 | NUR ---
PATIENT NOTED LAYING IN BED, VERBALLY REPETITIVE, NO SIGNS OF DISTRESS, CALL LIGHT IN REACH, BED LOCKED AND IN LOWEST POSITION
[2017-06-22 09:02] VITALS: BP 157/81
[2017-06-22] MEDS: QUETIAPINE FUMARATE 25 MG TABLET PO SCH ×3 (09:02→17:44)
[2017-06-22] MEDS: DULOXETINE 30 MG CAPSULE.DR PO SCH (09:02)
[2017-06-22] MEDS: ropiniROLE 0.5 MG TABLET PO SCH ×2 (09:02→17:44)
[2017-06-22] MEDS: LORAZEPAM 0.5 MG TABLET PO PRN (09:02)
[2017-06-22] MEDS: AMLODIPINE 5 MG TABLET PO SCH (09:02)
[2017-06-22] MEDS: ASPIRIN 81 MG TAB.CHEW PO SCH (09:03)
[2017-06-22 10:01] LABS: CARBON DIOXIDE 31 mmol/L (21-32); CHLORIDE 108 mmol/L (98-107); CREATININE 0.6 mg/dL (0.6-1.3); GLUCOSE 102 mg/dL (74-106); POTASSIUM 3.1 mmol/L (3.5-5.1); UREA NITROGEN, BLOOD 17 mg/dL (7-18)
[2017-06-22] MEDS ORDERED: POTASSIUM CHLORIDE 20 MEQ TAB.PRT.SR PO ONE (11:15)
--- NOTE | 2017-06-22 19:02 | NUR ---
discharge instructions placed in packet, exit care given to patient, awaiting ambulance [facility]
--- NOTE | 2017-06-22 20:05 | NUR ---
Patient discharged with ambulance. daughter at bedside. vital signs stable at time of discharge. day shift nurse gave report to [facility]. facesheet/packet given to ambulance. aware.
== END 2017-06-22 20:05 | DRG 871 ==
LOC: ER 17:54 → TELE 22:00 → MED 06-17 11:16 → MEDSURG1 06-17 20:15 → MED 06-17 20:53 → MEDSURG1 06-17 20:58
PROVIDERS: ADMIT Internal Medicine; ATTEND Internal Medicine
DX: A41.9 Sepsis, unspecified organism (principal); I21.4 Non-ST elevation (NSTEMI) myocardial infarction; N17.0 Acute kidney failure with tubular necrosis; E43 Unspecified severe protein-calorie malnutrition; G92 Toxic encephalopathy; L89.102 Pressure ulcer of unspecified part of back, stage 2; L89.152 Pressure ulcer of sacral region, stage 2; C90.00 Multiple myeloma not having achieved remission; D68.59 Other primary thrombophilia; B37.49 Other urogenital candidiasis; Z68.1 Body mass index [BMI] 19.9 or less, adult; I35.1 Nonrheumatic aortic (valve) insufficiency; L89.219 Pressure ulcer of right hip, unspecified stage; M81.0 Age-related osteoporosis without current pathological fracture; R65.20 Severe sepsis without septic shock; E89.0 Postprocedural hypothyroidism; K59.00 Constipation, unspecified; Z74.01 Bed confinement status; Z79.82 Long term (current) use of aspirin; Z79.899 Other long term (current) drug therapy; M19.90 Unspecified osteoarthritis, unspecified site; I48.0 Paroxysmal atrial fibrillation; F03.90 Unspecified dementia, unspecified severity, without behavioral disturbance, psychotic disturbance, mood disturbance, and anxiety; E78.5 Hyperlipidemia, unspecified; I10 Essential (primary) hypertension; Z87.311 Personal history of (healed) other pathological fracture; I25.10 Atherosclerotic heart disease of native coronary artery without angina pectoris
CPT/HCPCS: 36415; 70030-TC; 71010; 74018; 76700; 83605; 83735; 84100; 84443; 85025; 85730; 87040; 87086; 87400; 93005; 93307; A4663; J1170; J1450; J2405; J2543; J3370; J3490; J7030; J7060